=== PATIENT | female | born 1990 | race American Indian/Alaskan Native ===

== ENCOUNTER 2017-07-26 22:42 | Emergency (ER) | payer OTHER ==
[~2017-07-26] VITALS: Ht 167.6 cm; Wt 101.2 kg
[~2017-07-26 22:42] MED LIST: CEPH500 PO; HYDACE5 PO; IBUP800 PO; METF500 PO; NAPR550 PO; PENVK500 PO; PROACE100 PO; PROM25 PO; RXNAPNA550 PO
[2017-07-26] MEDS ORDERED: SERT50 PO (23:06)
[2017-07-26] MEDS ORDERED: BUSP10 PO (23:06)
[2017-11-29] MEDS ORDERED: OXYC10TA19 PO (08:44)
== END 2017-07-26 23:44 | disposition home or self-care (01) ==
LOC: ER 22:42
DX: K11.20 Sialoadenitis, unspecified (principal); Z91.040 Latex allergy status; Z91.013 Allergy to seafood; Z79.899 Other long term (current) drug therapy
CPT/HCPCS: 99282

== ENCOUNTER → 2019-07-24 | Outpatient (CLI) | payer OTHER ==
[~2019-07-24] MED LIST changes: +BUSP10 PO; +OXYC10TA19 PO; +SERT50 PO
== END | disposition home or self-care (01) ==
LOC: PLD 13:33 → LAB SHORT 13:33
DX: N93.9 Abnormal uterine and vaginal bleeding, unspecified (principal)
CPT/HCPCS: 88305

== ENCOUNTER → 2019-09-07 | Outpatient (CLI) | payer OTHER ==
[2019-09-07 15:00] LABS: Candida species (DNA Probe) Negative (NEGATIVE); G. vaginalis (DNA Probe) Positive (NEGATIVE); T. vaginalis (DNA Probe) Negative (NEGATIVE)
== END | disposition home or self-care (01) ==
LOC: LAB 12:02 → LAB SHORT 12:02
PROVIDERS: Advanced Practice Midwife
DX: Z11.3 Encounter for screening for infections with a predominantly sexual mode of transmission (principal); N76.0 Acute vaginitis
CPT/HCPCS: 87480; 87510; 87660